=== PATIENT | female | born 1990 | race American Indian/Alaskan Native ===

== ENCOUNTER 2019-01-22 19:00 | Outpatient (CLI) | payer BC, OTHER ==
[2019-01-22 19:38] VITALS: BP 134/86
[2019-01-22] MEDS ORDERED: VISTARIL PO ONE (21:01)
== END 2019-01-22 21:15 | disposition home or self-care (01) ==
LOC: TRG 19:00
PROVIDERS: ATTEND Obstetrics & Gynecology
DX: O60.03 Preterm labor without delivery, third trimester (principal); Z3A.39 39 weeks gestation of pregnancy
CPT/HCPCS: 59025; Q0177

== ENCOUNTER 2019-01-23 00:01 | Inpatient (IN) | payer BC, OTHER ==
[2019-01-23] MEDS ORDERED: LACTATED RINGERS 1,000 ML ONE (00:12)
[2019-01-23] MEDS ORDERED: MINERAL OIL PO PRN (00:41)
[2019-01-23] MEDS ORDERED: SUBLIMAZE IV PRN (00:41)
[2019-01-23] MEDS ORDERED: SUBLIMAZE ONE (00:49)
[2019-01-23 00:52] LABS: Hematocrit 40.4 % (30.3-42.9); Mean Corpuscular HGB Conc 35 % (30-34); Mean Corpuscular Volume 93 fl (79-97); Platelet Count 267 K/mm3 (140-440); Red Blood Count 4.33 M/mm3 (3.65-5.03); Red Cell Distribution Width 14.4 % (13.2-15.2)
[2019-01-23] MEDS ORDERED: BRETHINE SUB-Q PRN (00:53)
[2019-01-23] MEDS ORDERED: XYLOCAINE 2% INFILTRATI ONE (00:53)
[2019-01-23] MEDS ORDERED: PITOCin/NS 20 UNIT/1000ML DRIP 20,000 MILLIUNITS/1,000 ML BAG IV ONE (00:54)
[2019-01-23] MEDS ORDERED: LACTATED RINGERS 1,000 ML IV SCH ×3 (01:00→04:00)
[2019-01-23] MEDS ORDERED: PITOCin/NS 20 UNIT/1000ML DRIP 20 UNITS/1,000 ML BAG IV SCH ×3 (01:00→06:36)
[2019-01-23] MEDS ORDERED: PITOCin/NS 30 UNIT/500ML 30 UNITS/500 ML BAG IV SCH (01:00)
--- NOTE | 2019-01-23 01:12 | History and Physical Report ---
History of Present Illness Date of examination: 01/23/19 (Pt d/c home from Triage 1cm; returned after 2hr 6-7cm dilated) Chief complaint: ctx, vomiting, bleeding History of present illness: EDC Confirmation: 01/27/2019 Gestational Age: 6 3/7 weeks Past History : 1 Term Births: 0 Premature Births: 0 Living Children: 0 Para: 0 Mult. Births: 0 Prev : 0 Prev. attempt? 0 Aborta: 0 Elect. Ab: 0 Spont. Ab: 0 Ectopics: 0 Past Medical History: Reviewed history from 01/16/2017 and no changes required: Negative Past Medical History Past Surgical History: Reviewed history from 01/16/2017 and no changes required: Knee Arthroscopy(bilateral) 3 surgies Past Medical History Surgery (Non-regional flatbed truck driver): Knee Arthroscopy(bilateral) 3 surgies Abnormal PAP: negative Medical History Comments: last pap 2017 - - normal Family Hx: HTN - mother, PGF DM - Mother, PGM, Aunt, PGF Cancer; Brst - mother, aunt Brain - mother Social Hx: Patient is single no ETOH/drugs/Smoking Smoking History: Patient has never smoked. Infection History Hx of STD: none HIV Risk Eval: low risk Hepatitis B Risk Eval: low risk Personal hx. of genital herpes: yes Partner hx. of genital herpes: no Rash, Viral, or Febrile illness since last LMP? no Varicella/Chicken Pox Status: Previous Disease Genetic History Congenital Heart Defect: Mom: no Dad: no Larisa Disease: Mom: no Dad: no Thalassemia Mom: no Dad: no Neural Tube Defect Mom: no Dad: no Down's Syndrome Mom: no Dad: no Dell-Sachs Mom: no Dad: no Sickle Cell Disease/Trait Mom: no Dad: no Hemophilia Mom: no Dad: no Muscular Dystrophy Mom: no Dad: no Cystic Fibrosis Mom: no Dad: no [place] Chorea Mom: no Dad: no Mental Retardation Mom: no Dad: no Fragile X Mom: no Dad: no Other Genetic/Chromosomal Disorder Mom: no Dad: no Child w/other defect Mom: no Dad: no Enviromental Exposures Xray Exposure: no Medication, drug, or alcohol use since LMP: no Chemical/Other Exposure: no Exposure to Cat Liter: no Hx of Parvovirus (Fifth Disease): no Occupational Exposure to Children: none Active Medications: None Current Allergies (reviewed today): No known allergies Past History - Obstetrical History Expected Date of Delivery: 01/27/19 Actual Gestation: 39 Week(s) 3 Day(s) : 1 Para: 0 Hx # Term Pregnancies: 0 Number of Pregnancies: 0 Spontaneous Abortions: 0 Induced : 0 Number of Living Children: 0 Medications and Allergies Allergies Allergy/AdvReac Type Severity Reaction Status Date / Time No Known Allergies Allergy Verified 01/22/19 19:05 Active Meds: Active Medications Fentanyl (Sublimaze) 100 mcg IV Q2H PRN PRN Reason: Labor Pain Last Admin: 01/23/19 00:51 Dose: 100 mcg Documented by: Lactated Ringer's (Lactated Ringers) 1,000 mls @ 125 mls/hr IV DIRECT KIKI Mineral Oil (Mineral Oil) 30 ml PO QHS PRN PRN Reason: Constipation - Vital Signs Vital signs: Vital Signs Resp 18 01/23/19 00:51 Temp Pulse Resp BP Pulse Ox 18 01/23/19 00:51 - Physical Exam Breasts: Positive: deferred Cardiovascular: Regular rate, Normal S1, Normal S2 Lungs: Positive: Normal air movement Abdomen: Positive: normal appearance, soft, normal bowel sounds. Negative: distention, tenderness Genitourinary (Female): Positive: normal external genitalia Vulva: both: normal Vagina: Positive: normal moisture. Negative: discharge Cervix: Negative: lesion, discharge Uterus: Positive: normal size, normal contour Adnexa: both: normal Anus/Rectum: Positive: normal perianal skin, heme negative. Negative: rectal mass, hemorrhoids Extremities: Positive: normal Deep Tendon Reflex Grade: Normal +2 - Obstetrical FHR: category 1 Uterine Contraction Monitor Mode: External Cervical Dilatation: 8 (BBOW) Cervical Effacement Percentage: 100 (bloody show) station: -1 Uterine Contraction Frequency (min): q2-4 Uterine Contraction Duration: 45 Uterine Contraction Pattern: Regular Uterine Tone Measurement Phase: Resting Uterine Contraction Intensity: Strong/Firm Results Result Diagrams: 01/23/19 00:38 Abnormal lab results 01/23/19 Range/Units 00:38 WBC 12.3 H (4.5-11.0) K/mm3 MCHC 35 H (30-34) % All other labs normal. GBS Negative HBsAg Screen Negative Negative *1 RPR Non Reactive Non Reactive *2 Rubella Antibodies, IgG 1.28 index Immune >0.99 *3 Non-immune <0.90 Equivocal 0.90 - 0.99 Immune >0.99 ABO Grouping O *4 Rh Factor Negative *5 Please note: Prior records for this patient's ABO / Rh type are not available for additional verification. Antibody Screen Negative Negative *6 WBC 8.6 x10E3/uL 3.4-10.8 *7 RBC [L] 3.71 x10E6/uL 3.77-5.28 *8 Hemoglobin 12.2 g/dL 11.1-15.9 *9 Hematocrit 36.0 % 34.0-46.6 *10 MCV 97 fL 79-97 *11 MCH 32.9 pg 26.6-33.0 *12 MCHC 33.9 g/dL 31.5-35.7 *13 RDW 13.7 % 12.3-15.4 *14 Platelets 271 x10E3/uL 150-379 *15 Neutrophils 69 % Not Estab. *16 Lymphs 18 % Not Estab. *17 Monocytes 10 % Not Estab. *18 Eos 2 % Not Estab. *19 Basos 0 % Not Estab. *20 ! Immature Cells <No Reported Value> *21 Neutrophils (Absolute) 5.8 x10E3/uL 1.4-7.0 *22 Lymphs (Absolute) 1.6 x10E3/uL 0.7-3.1 *23 Monocytes(Absolute) 0.9 x10E3/uL 0.1-0.9 *24 Eos (Absolute) 0.2 x10E3/uL 0.0-0.4 *25 Baso (Absolute) 0.0 x10E3/uL 0.0-0.2 *26 ! Immature Granulocytes 1 % Not Estab. *27 ! Immature Grans (Abs) 0.1 x10E3/uL 0.0-0.1 *28 ! NRBC <No Reported Value> *29 Hematology Comments: <No Reported Value> *30 Tests: (2) Panel [id number] ([id number]) HIV Screen 4th Generation wRfx Non Reactive Non Reactive *31 Tests: (3) HCV Ab w/Rflx to Verification (874150) ! HCV Ab 0.4 s/co ratio 0.0-0.9 *32 Tests: (4) Comment: (368075) ! Comment: SPR *33 Non reactive HCV antibody screen is consistent with no HCV infection, unless recent infection is suspected or other evidence exists to indicate HCV infection. Tests: (5) Urine Culture, Routine ([id number]) Urine Culture, Routine Final report *34 Tests: (6) Result ([id number]) ! Result 1 No growth *35 Assessment and Plan 28yo @ 39 weeks in active labor GBS negative. Orders in EMR Anticipate delivery
[2019-01-23] MEDS ORDERED: NARCAN 2 MG/2 ML IV PRN (01:33)
[2019-01-23] MEDS ORDERED: fentaNYL-BUPIV 2 MCG/ML-0.125% 200 MCG/100 ML BAG EPIDURAL SCH (02:00)
--- NOTE | 2019-01-23 02:29 | Anesthesia Consultation ---
Anesthesia Consult and Med Hx Date of service: 01/23/19 - Airway Anesthetic Teeth Evaluation: Good ROM Head & Neck: Adequate Mental/Hyoid Distance: Adequate Mallampati Class: Class II Intubation Access Assessment: Probably Good - Pulmonary Exam CTA: Yes - Cardiac Exam Cardiac Exam: RRR - Pre-Operative Health Status ASA Pre-Surgery Classification: ASA2 Proposed Anesthetic Plan: Epidural - Pulmonary Hx Smoking: No Hx Asthma: No Hx Respiratory Symptoms: No SOB: No COPD: No Home Oxygen Therapy: No Hx Pneumonia: No Hx Sleep Apnea: No - Cardiovascular System Hx Hypertension: No Hx Coronary Artery Disease: No Hx Heart Attack/AMI: No Hx Angina: No Hx Percutaneous Transluminal Coronary Angioplasty (PTCA): No Hx Cardia Arrhythmia: No Hx Pacemaker: No Hx Internal Defibrillator: No Hx Valvular Heart Disease: No Hx Heart Murmur: No Hx Peripheral Vascular Disease: No - Central Nervous System Hx Neuromuscular Disorder: No Hx Seizures: No CVA: No Hx Back Pain: Yes Hx Psychiatric Problems: No - Gastrointestinal Hx Ulcer: No Hx Gastroesophageal Reflux Disease: No - Endocrine Hx Renal Disease: No Hx End Stage Renal Disease: No Hx Cirrhosis: No Hx Liver Disease: No Hx Insulin Dependent Diabetes: No Hx Non-Insulin Dependent Diabetes: No Hx Thyroid Disease: No Hx Hypothyroidism: No Hx Hyperthyroidism: No - Hematic Hx Anemia: No Hx Sickle Cell Disease: No - Other Systems Hx Alcohol Use: No Hx Substance Use: No Hx Cancer: No Hx Obesity: Yes (BMI 37.6)
[2019-01-23] MEDS ORDERED: REGLAN IV ONE (03:18)
[2019-01-23] MEDS ORDERED: PEPCID IV ONE ×2 (03:18→03:19)
[2019-01-23] MEDS ORDERED: BICITRA PO ONE (03:18)
[2019-01-23] MEDS ORDERED: REGLAN ONE ×2 (03:19→03:22)
[2019-01-23] MEDS ORDERED: BICITRA ONE ×2 (03:19→03:22)
--- NOTE | 2019-01-23 03:22 | Progress Note ---
Assessment and Plan Attempting to push pt does push effectively FHR 80-90 slow to recover Attempted again to push no descent of head FHTs bradycardia again called External resuscitation FHT 100-110 C/S called Pt prepped Consented Will move to the OR Subjective - Subjective Date of service: 01/23/19 (Completely dilated ) Interval history: EDC Confirmation: 01/27/2019 Gestational Age: 6 3/7 weeks Past History : 1 Term Births: 0 Premature Births: 0 Living Children: 0 Para: 0 Mult. Births: 0 Prev : 0 Prev. attempt? 0 Aborta: 0 Elect. Ab: 0 Spont. Ab: 0 Ectopics: 0 Past Medical History: Reviewed history from 01/16/2017 and no changes required: Negative Past Medical History Past Surgical History: Reviewed history from 01/16/2017 and no changes required: Knee Arthroscopy(bilateral) 3 surgies Past Medical History Surgery (Non-floor plan adjuster): Knee Arthroscopy(bilateral) 3 surgies Abnormal PAP: negative Medical History Comments: last pap 2017 - rosalba - normal Family Hx: HTN - mother, PGF DM - Mother, PGM, Aunt, PGF Cancer; Brst - mother, aunt Brain - mother Social Hx: Patient is single no ETOH/drugs/Smoking Smoking History: Patient has never smoked. Infection History Hx of STD: none HIV Risk Eval: low risk Hepatitis B Risk Eval: low risk Personal hx. of genital herpes: yes Partner hx. of genital herpes: no Rash, Viral, or Febrile illness since last LMP? no Varicella/Chicken Pox Status: Previous Disease Genetic History Congenital Heart Defect: Mom: no Dad: no Larisa Disease: Mom: no Dad: no Thalassemia Mom: no Dad: no Neural Tube Defect Mom: no Dad: no Down's Syndrome Mom: no Dad: no Dell-Sachs Mom: no Dad: no Sickle Cell Disease/Trait Mom: no Dad: no Hemophilia Mom: no Dad: no Muscular Dystrophy Mom: no Dad: no Cystic Fibrosis Mom: no Dad: no Deisy Chorea Mom: no Dad: no Mental Retardation Mom: no Dad: no Fragile X Mom: no Dad: no Other Genetic/Chromosomal Disorder Mom: no Dad: no Child w/other defect Mom: no Dad: no Enviromental Exposures Xray Exposure: no Medication, drug, or alcohol use since LMP: no Chemical/Other Exposure: no Exposure to Cat Liter: no Hx of Parvovirus (Fifth Disease): no Occupational Exposure to Children: none Active Medications: None Current Allergies (reviewed today): No known allergies Patient reports: movement normal Objective - Vital Signs Vital Signs: Vital Signs - 12hr 01/23/19 01/23/19 01/23/19 00:51 00:57 01:02 Pulse Rate 81 82 Respiratory 18 Rate Blood Pressure O2 Sat by Pulse 84 100 Oximetry 01/23/19 01/23/19 01/23/19 01:07 01:12 01:17 Pulse Rate 96 H 91 H 66 Respiratory Rate Blood Pressure O2 Sat by Pulse 100 100 100 Oximetry 01/23/19 01/23/19 01/23/19 01:22 01:23 01:26 Pulse Rate 68 83 36 L Respiratory Rate Blood Pressure 118/74 O2 Sat by Pulse 99 90 Oximetry 01/23/19 01/23/19 01/23/19 01:27 01:28 01:31 Pulse Rate 113 H 105 H 97 H Respiratory Rate Blood Pressure 111/69 115/74 O2 Sat by Pulse 90 Oximetry 01/23/19 01/23/19 01/23/19 01:32 01:36 01:37 Pulse Rate 59 L 81 42 L Respiratory Rate Blood Pressure O2 Sat by Pulse 82 L 88 85 Oximetry 01/23/19 01/23/19 01/23/19 01:42 01:47 01:51 Pulse Rate 81 79 Respiratory 18 Rate Blood Pressure O2 Sat by Pulse 100 100 Oximetry 01/23/19 01/23/19 01/23/19 01:52 01:54 01:57 Pulse Rate 75 88 65 Respiratory Rate Blood Pressure 119/81 O2 Sat by Pulse 100 100 Oximetry 01/23/19 01/23/19 01/23/19 02:02 02:07 02:10 Pulse Rate 72 79 67 Respiratory Rate Blood Pressure O2 Sat by Pulse 100 100 77 L Oximetry 01/23/19 01/23/19 01/23/19 02:12 02:17 02:22 Pulse Rate 84 79 78 Respiratory Rate Blood Pressure 119/76 O2 Sat by Pulse 100 100 100 Oximetry 01/23/19 01/23/19 01/23/19 02:27 02:32 02:37 Pulse Rate 83 97 H 86 Respiratory Rate Blood Pressure O2 Sat by Pulse 100 100 100 Oximetry 01/23/19 01/23/19 01/23/19 02:42 02:47 02:52 Pulse Rate 81 104 H 96 H Respiratory Rate Blood Pressure O2 Sat by Pulse 100 100 100 Oximetry 01/23/19 01/23/19 01/23/19 02:53 02:57 03:02 Pulse Rate 80 91 H 85 Respiratory Rate Blood Pressure 129/83 O2 Sat by Pulse 100 100 Oximetry - Exam Breasts: deferred Cardiovascular: Regular rate Lungs: Normal air movement Abdomen: Present: normal appearance, soft. Absent: distention, tenderness Uterus: Present: normal FHR: auscultation normal Uterine Contraction Monitor Mode: Internal Cervical Dilatation: 10 Cervical Effacement Percentage: 100 station: -1 Uterine Contraction Pattern: Regular Uterine Tone Measurement Phase: Resting Uterine Contraction Intensity: Strong/Firm Extremities: edema Deep Tendon Reflex Grade: Normal +2 - Labs Labs: Abnormal Labs 01/23/19 00:38 WBC 12.3 H MCHC 35 H Laboratory Results - last 24 hr 01/23/19 01/23/19 00:38 00:38 WBC 12.3 H RBC 4.33 Hgb 14.0 Hct 40.4 MCV 93 MCH 32 MCHC 35 H RDW 14.4 Plt Count 267 Blood Type O NEGATIVE Antibody Screen Negative
[2019-01-23] MEDS ORDERED: DEXMEDETOMIDINE IV ONE (03:42)
[2019-01-23] MEDS ORDERED: XYLOCAINE MPF 2% ONE ×2 (03:42→03:54)
[2019-01-23] MEDS ORDERED: NACL 0.9% IR ONE (03:44)
[2019-01-23] MEDS ORDERED: WATER FOR IRRIG STERILE IR ONE (03:44)
[2019-01-23] MEDS ORDERED: NEO SYNEPHRINE ONE (03:49)
[2019-01-23] MEDS ORDERED: TORADOL ONE (03:56)
[2019-01-23] MEDS ORDERED: ANCEF/STERILE WATER 2 GM/20 ML 2 GM/20 ML SYRINGE IV NR (04:00)
[2019-01-23] MEDS ORDERED: ZOFRAN IV PRN ×2 (04:48→06:36)
[2019-01-23] MEDS ORDERED: BENADRYL IV PRN (04:48)
[2019-01-23] MEDS ORDERED: DILAUDID IV PRN ×2 (04:48)
--- NOTE | 2019-01-23 04:50 | Anesthesia Day of Surgery ---
Anesthesia Day of Surgery - Day of Surgery Patient Examined: Yes Patient H&P Reviewed: Yes Patient is NPO: Yes Beta Blockers: No Cardiac Clearance: No Pulmonary Clearance: No Arturo's Test: N/A
--- NOTE | 2019-01-23 04:51 | Post Anesthesia Evaluation ---
- Post Anesthesia Evaluation Patient Participated: Yes Airway Patent: Yes Stable Respiratory Function: Yes Nausea/Vomiting: No Temp > 96.8F: Yes Pain Manageable: Yes Adequeate Hydration: Yes Anesthesia Complications: No Block Receding Appropriately: Yes Patient on Ventilator: No
[2019-01-23] MEDS ORDERED: SODIUM CHLORIDE FLUSH SYRINGE 10 ML IV PRN ×2 (05:00→06:36)
--- NOTE | 2019-01-23 05:02 | Post Operative Note ---
Pre-op diagnosis: IUP@39weeks, failure to descend, NRFHT's Post-op diagnosis: same Findings: viable male , Apg 8/9, wt 7#7oz Procedure: C/s Anesthesia: epidural Surgeon: RENA MCKEON Awning Craftsman: LOLLY BHAKTA Estimated blood loss: other (700mL) Pathology: list (placenta) Specimen disposition: to lab Condition: stable Disposition: other (Unable to dictate op note at this time d/t no access to dictation system or Dragon)
[2019-01-23] MEDS ORDERED: PHENERGAN PR PRN (06:36)
[2019-01-23] MEDS ORDERED: MORPHINE IV PRN ×2 (06:36)
[2019-01-23] MEDS ORDERED: NARCAN 0.4 MG/1 ML IV PRN (06:36)
[2019-01-23] MEDS ORDERED: TUCKS PAD TP PRN (06:36)
[2019-01-23] MEDS ORDERED: D5LR 1,000 ML IV SCH (06:36)
[2019-01-23] MEDS ORDERED: MILK OF MAGNESIA PO PRN (06:36)
[2019-01-23] MEDS ORDERED: LANSINOH TP PRN (06:36)
[2019-01-23] MEDS: TYLENOL PO SCH ×4 (07:30→21:30)
[2019-01-23] MEDS: MYLICON PO PRN ×2 (10:46→20:21)
[2019-01-23] MEDS: TORADOL IV SCH ×2 (10:46→18:52)
[2019-01-23] MEDS: ANCEF/NS 1 GM/50 ML 1 GM/50 ML BAG IV SCH ×2 (12:05→20:06)
--- NOTE | 2019-01-23 12:32 | Event Note ---
Date: 01/23/19 POD 0m <12 hrs s/p c/s Patient reports feeling well. Denies any complaints or concerns. Reports pain is well controlled and bleeding is slow. VSSAF. Continue post op pathway
[2019-01-23 17:03] LABS: Hematocrit 29.4 % (30.3-42.9); Hemoglobin 10.1 gm/dl (10.1-14.3)
--- NOTE | 2019-01-23 17:42 | Event Note ---
Date: 01/23/19 Operative note dictated
--- NOTE | 2019-01-23 19:25 | Operative Report ---
PREOPERATIVE DIAGNOSES: 1. Intrauterine at 39 weeks. 2. Nonreassuring heart rate tracing. 3. Failure to descend. POSTOPERATIVE DIAGNOSES: 1. Intrauterine at 39 weeks. 2. Nonreassuring heart rate tracing. 3. Failure to descend. PROCEDURE: Primary low transverse section. SURGEON: Shelbie Garrett M.D. RIVER PILOT: Jose R Cortés CNM. ANESTHESIA: Epidural. COMPLICATIONS: None. ESTIMATED BLOOD LOSS: 700 mL. FINDINGS: Grossly normal uterus, tubes and ovaries. Viable male infant, weight 7 pounds 7 ounces, Apgars 6 and 9. DESCRIPTION OF PROCEDURE: On arrival, the patient was already in the OR prepped and draped due to decreased heart tones. After timeout was performed and appropriate level of anesthesia was noted, a Pfannenstiel incision was made and extended to the fascia, which was incised and extended in the lateral direction. The overlying fascia was sharply dissected away from the underlying rectus muscles in a superior inferior direction. The midline was then entered bluntly. The vesicouterine fold was incised with blunt dissection. A bladder flap was created. A transverse incision was made in the lower uterine segment and extended in a superolateral direction with finger fractionation. The infant was delivered from the cephalic position. Mouth and nose were bulb suctioned. was given to the resuscitation team present. The placenta was manually extracted. The uterus was exteriorized and cleaned of any products of conception or placental tissue. The uterine incision was reapproximated using 0 Vicryl in a running interlocking stitch followed by further suture of 0 Vicryl in an imbricating fashion. Once hemostasis was noted, the uterus was allowed back into the pelvic cavity. The pelvis was irrigated with warm normal saline. Grossly normal tubes and ovaries were noted. Tisseel was applied to the lower uterine segment for hemostasis followed by Interceed to decrease adhesions. Once hemostasis was noted, the rectus muscles were reapproximated using 0 Vicryl in a simple stitch x 4. Once hemostasis was noted on the rectus muscles, the fascia was reapproximated using 0 Vicryl in a simple running stitch. Once hemostasis was noted, the skin was reapproximated using 4-0 Vicryl on a Arthur needle in a subcuticular manner. The patient tolerated the procedure well and was taken to recovery room in stable condition. JOB# [id number] LDR/NTS
[2019-01-24] MEDS: TORADOL IV SCH ×2 (01:00→05:00)
[2019-01-24] MEDS ORDERED: TYLENOL PO ONE (04:05)
[2019-01-24] MEDS: TYLENOL PO SCH (04:20)
[2019-01-24] MEDS ORDERED: PERCOCET 5/325 PO PRN (04:42)
[2019-01-24] MEDS ORDERED: BOOSTRIX IM ONE (06:00)
[2019-01-24] MEDS: IBUPROFEN PO PRN ×3 (06:30→17:56)
[2019-01-24] MEDS: TRIPLE ANTIBIOTIC TP SCH ×2 (07:55→12:44)
[2019-01-24] MEDS ORDERED: TRIPLE ANTIBIOTIC TP SCH (08:00)
--- NOTE | 2019-01-24 09:01 | Progress Note ---
Assessment and Plan patient resting with in arms, no complaints. VSSAF, postop H&H 10.1/29.4. breast feeding. - Patient Problems (1) delivery delivered Current Visit: Yes Status: Acute Plan to address problem: continue postop pathway Encouraged breast feeding on demand Advance diet and activity as tolerated (2) Abrasion Current Visit: Yes Status: Acute Plan to address problem: top layer of skin loss with removal of dressing Keep clean and dry, treat with neosporin topically as needed. Subjective - Subjective Date of service: 01/24/19 Principal diagnosis: postop day #1 s/p primary c/s Patient reports: appetite normal, voiding normally, pain well controlled, flatus, ambulating normally, no dizzy ambulation, no nauseated Leonard: doing well, nursing well Objective - Vital Signs Latest vital signs: Vital Signs Temp Pulse Resp BP BP Pulse Ox 01/23/19 23:44 98.3 F 94 H 20 118/76 97 01/23/19 19:57 98.8 F 102 H 18 116/71 98 01/23/19 16:35 98.2 F 109 H 18 96/68 01/23/19 12:06 98 F 86 18 111/74 Intake and Output 01/23/19 01/24/19 01/24/19 23:59 07:59 15:59 Intake Total 480 240 Output Total 300 650 Balance 180 -410 Intake: Oral 480 Intake, Free Water 240 Output: Urine 300 650 Void 300 650 Other: Total, Intake Amount 480 Total, Output Amount 300 650 # Voids Void 1 2 - Exam Breasts: Present: normal, Cardiovascular: Present: Regular rate Lungs: Present: Clear to auscultation, Normal air movement Abdomen: Present: normal appearance, soft Vulva: both: normal Uterus: Present: normal, firm, fundal height at umbilicus Extremities: Present: normal Deep Tendon Reflex Grade: Normal +2 Incision: Present: normal, dry, intact, other (tape brannon/loss of top layer of skin on right side of abdomen) - Labs Labs: Abnormal lab results 01/23/19 Range/Units 16:37 Hct 29.4 L D (30.3-42.9) %
[2019-01-24] MEDS: MYLICON PO PRN (09:21)
[2019-01-25] MEDS: IBUPROFEN PO PRN ×2 (00:03→10:22)
[2019-01-25] MEDS: TRIPLE ANTIBIOTIC TP SCH ×3 (00:05→13:25)
[2019-01-25] MEDS: MYLICON PO PRN (10:22)
--- NOTE | 2019-01-25 14:06 | Discharge Summary ---
Providers - Providers Date of Admission: 01/23/19 04:01 Date of discharge: 01/25/19 (desires d/c home today) Attending physician: RENA MCKEON 01/23/19 06:36 Consult to Space Planner [CONS] Routine Reason For Exam: Primary care physician: RENA MCKEON Hospitalization Reason for admission: Labor Condition: Good Pertinent studies: post H&H 10.1/29.4 Procedures: primary c/s Hospital course: uncomplicated c/s delivery and course Disposition: - TO HOME OR SELFCARE - Discharge Diagnoses (1) delivery delivered Status: Acute (2) Abrasion Status: Acute Core Measure Documentation - Palliative Care Palliative Care/ Comfort Measures: Not Applicable - Core Measures Any of the following diagnoses?: none Exam - Constitutional Vitals: Temp Pulse Resp BP Pulse Ox 98.8 F 91 H 20 136/92 95 01/25/19 08:30 01/25/19 08:30 01/25/19 08:30 01/25/19 08:30 01/25/19 01:51 General appearance: Present: no acute distress, well-nourished - EENT Eyes: Present: PERRL ENT: hearing intact, clear oral mucosa - Neck Neck: Present: supple, normal ROM - Respiratory Respiratory effort: normal Respiratory: bilateral: CTA - Cardiovascular Heart Sounds: Present: S1 & S2. Absent: rub, click - Extremities Extremities: pulses symmetrical, No edema Peripheral Pulses: within normal limits - Abdominal General gastrointestinal: Present: soft, non-tender, non-distended, normal bowel sounds Female genitourinary: Present: normal - Integumentary Integumentary: Present: clear, warm, dry - Musculoskeletal Musculoskeletal: gait normal, strength equal bilaterally - Psychiatric Psychiatric: appropriate mood/affect, intact judgment & insight - Neurologic Neurologic: CNII-XII intact, moves all extremities - Additional findings Additional findings: incision D&I, , lochia scant, fundus firm Plan Activity: advance as tolerated Diet: regular Wound: open to air, keep clean and dry Follow up with: RENA MCKEON MD [Primary Care Provider] - 7 Days (Congratulations! Please call [phone] to schedule your son's circumcision and your incision check in 1 week. Bring ALYSON cream to your son's visit and await further teaching. Call for any questions or concerns.) Prescriptions: Lidocain2.5%/Prilocai2.5% [Emla] 5 gm TP ONCE #1 tube Ibuprofen [Motrin 800 MG tab] 800 mg PO TID PRN #30 tablet PRN Reason: Pain oxyCODONE /ACETAMINOPHEN [Percocet 5/325 mg] 1 - 2 tab PO Q4HR PRN #20 tablet PRN Reason: Pain
[2019-01-25 16:44] VITALS: BP 130/87
== END 2019-01-25 16:25 | disposition home or self-care (01) | DRG 788 ==
LOC: TRG 00:01 → LD 00:15 → TRG 04:01 → APU 04:01 → OB 06:05
PROVIDERS: ADMIT Obstetrics & Gynecology; ATTEND Obstetrics & Gynecology
PROC: 10D00Z1 Extraction of Products of Conception, Low, Open Approach (ICD-10-PCS; principal; 2019-01-23)
PROC: 3E0234Z Introduction of Serum, Toxoid and Vaccine into Muscle, Percutaneous Approach (ICD-10-PCS; 2019-01-24)
DX: O76 Abnormality in fetal heart rate and rhythm complicating labor and delivery (principal); O99.214 Obesity complicating childbirth; Z3A.39 39 weeks gestation of pregnancy; Z37.0 Single live birth; Z82.49 Family history of ischemic heart disease and other diseases of the circulatory system; Z83.3 Family history of diabetes mellitus; Z80.3 Family history of malignant neoplasm of breast; Z80.8 Family history of malignant neoplasm of other organs or systems; O62.1 Secondary uterine inertia; O71.89 Other specified obstetric trauma; Z23 Encounter for immunization
CPT/HCPCS: 36415; 85014; 85018; 85027; 86592; 86850; 86900; 86901; 88307; G0378; A6250; C9250; J0690; J1885; J2270; J2370; J2590; J2765; J3010; J3490; J7120